=== PATIENT | female | born 2005 | race African-American/Black ===

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

== ENCOUNTER 2024-10-21 19:24 | Emergency (ER) | payer OTHER, SELFPAY ==
--- NOTE | ~2024-10-21 | US_ITS ---
US pelvic complete w TV Ordering provider: Nicolasa Nolan MD History: . r/o torsion . Comparison: None. Technique: Transabdominal and endovaginal ultrasound of the pelvis (Doppler ultrasound interrogation techniques used as needed for this exam.) FINDINGS: CERVIX: Normal. UTERUS: Measures 10.4x 3x 5 cm in length which is within normal limits and is anteverted. No myometr ial masses. ENDOMETRIUM: Normal in thickness measuring 1.9 mm. (Note: the premenopausal endometrium may measure u p to 16 mm when in the secretory phase.) No endometrial masses, cysts or fluid. CUL DE SAC: Moderate amount of free fluid in the pelvis. RIGHT OVARY: Normal in size measuring 3.1x 2.6x 2.3 cm. Normal echotexture. Doppler vascular flow pre sent. LEFT OVARY: Normal in size measuring 4.5x 3.6x 5.2 Normal echotexture. Doppler vascular flow present. Large Cystic septated hypervascular lesion is seen in the left adnexa. IMPRESSION: Cystic septated and hypervascular lesion in the left ovary with free fluid in the pelvis. Differentia l include hemorrhagic cyst versus ectopic . Clinical correlation advised. Torsion ovary is l ess likely but cannot be excluded. Otherwise, normal pelvic ultrasound. Reviewed, dictated and finalized at location A. IMPRESSION: Cystic septated and hypervascular lesion in the left ovary with free fluid in t he pelvis. Differential include hemorrhagic cyst versus ectopic . Clin ical correlation advised. Torsion ovary is less likely but cannot be excluded. Otherwise, normal pelvic ultrasound.
[2024-10-21 19:26] VITALS: BP 129/92; PULSE 119; RESP 20; TEMP 36.1; O2SAT 100
--- OUTSIDE RECORDS SUMMARY | 2024-10-21 19:28 | XMS_ITS ---
Author Organization [facility] Address [address] [facility] [address] [place] [address] Care Team Providers Care Armature Winder Repairer Name Role Phone Cydney Rudd Unavailable [phone] REASON FOR VISIT 4 week f/u; Late cancellation PT is sick Social History Sex Assigned At : Social History Observation Description Sex Assigned At Female Encounters Encounter Location Date Provider Diagnosis [facility] [address] [facility] [address] [place] [address] 09/02/2024 Cydney Rudd Plan Of Treatment No Information Progress Notes * BRENT HILLDOB:2005 (19 yo F)Acc No.[id number]:09/02/2024 Patient: Demetrio THOMPSON BRENT Provider: MANDIE QUINN :2005 A ge:19 Y S ex:Female Date:09/02/2024 Address:[facility] [address] [id number] Subjective: * Chief Complaints: * 1 . 4 week f/u; Late cancellation PT is sick. * Medical History: Objective: * Vitals: Assessment: Plan: * Treatment: * Billing Information: * Visit Code: * Procedure Codes: * Electronic signature of MANDIE Gibson on 10/21/2024 at 07:27 PM CDT Sign off status: Pending * Provider: MANDIE QUINN Date: 09/02/2024 Generated for Deborah harris/Jovana/eTransmitting on: 10/21/2024 07:27 PM CDT
--- OUTSIDE RECORDS SUMMARY | 2024-10-21 19:28 | XMS_ITS | Clinical Summary ---
Author Organization [facility] Address [address] [address] Phone Care Team Providers Care Auto Suspension And Steering Mechanic Name Role Phone Ashley Moraes MD Primary Care Provider [phone] Allergies No known active allergies Medications Tri-Sprintec, 28, 0.18/0.215/0.25 mg-35 mcg (28) tablet Take 1 Tablet by mouth daily. 3 Active fluticasone propionate (FLONASE) 50 mcg/spray [place], Suspension nasal inhalerIndicati ons:Viral URI Administer 2 Sprays in each nostril daily. 16 Gram 4 Active buPROPion HCL (WELLBUTRIN XL) 300 mg Extended Release 24 hour tablet Take 300 mg by mouth daily in the morning. 4 Active sertraline (Zoloft) 100 mg tablet Take 1.5 Tablets (150 mg) by mouth daily. 1 Tablet 4 Active topiramate (TOPAMAX) 25 mg tablet 1 tablet Orally twice daily for 30 days Active buPROPion HCL (WELLBUTRIN XL) 150 mg Extended Release 24 hour tablet 1 tablet in the morning Orally Once a day for 90 days Active Active Problems Problem Noted Date Diagnosed Date Moderate major depression 12/31/2023 Generalized anxiety disorder 05/26/2023 Panic attacks 05/26/2023 Encounters Date Type Department Care Team Description 10/18/2024 External Device Data STL ABSTRACTION Provider, Abstract 09/21/2024 External Device Data STL ABSTRACTION Provider, Abstract 09/21/2024 External Device Data STL ABSTRACTION Provider, Abstract 09/10/2024 External Device Data STL ABSTRACTION Provider, Abstract 09/09/2024 External Device Data STL ABSTRACTION Provider, Abstract 09/06/2024 External Device Data STL ABSTRACTION Provider, Abstract 08/23/2024 External Device Data STL ABSTRACTION Provider, Abstract 08/11/2024 Results Follow-Up [facility] at [place] [address] [place] [address] Celeste Eugene, NURIS HEMOGLOBIN A1C, MONONUCLEOSIS SCREEN, TSH, Additional followed-up results: 4 08/09/2024 10:00 AM VEHICLE INSURANCE AGENT Office Visit [facility] at [place] [address] [place] [address] Celeste Eugene, NURIS 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); Morbid obesity with body mass index of 40.0-49.9 (CMS/HCC); Screening for condition; Moderate major depression (CMS/HCC) 07/28/2024 External Device Data STL ABSTRACTION Provider, Abstract 07/27/2024 External Device Data STL ABSTRACTION Provider, Abstract 07/26/2024 External Device Data STL ABSTRACTION Provider, Abstract from Last 3 Months Family History Medical History Relation Name Comments Anxiety Sister 1 Irene Relation Name Status Comments Father Alive Mother Alive Sister 1 Irene Alive Sister 2 Madelaine Alive Sister 3 Wesley Alive Social History Tobacco Use Types Packs/Day Years Used Date Smoking Tobacco: Never Smokeless Tobacco: Never Tobacco Cessation:Counseling Given: Not Answered Comments No Sex and Gender Information Value Date Recorded Sex Assigned at Female 05/19/2023 4:22 PM VEHICLE INSURANCE AGENT Legal Sex Female 11:06 PM VEHICLE INSURANCE AGENT Gender Identity Other 05/19/2023 4:22 PM VEHICLE INSURANCE AGENT Sexual Orientation unknown 05/19/2023 4: 22 PM VEHICLE INSURANCE AGENT Last Filed Vital Signs Vital Sign Reading Time Taken Comments Blood Pressure 118/68 08/09/2024 10:00 AM VEHICLE INSURANCE AGENT Pulse 90 08/09/2024 10:00 AM VEHICLE INSURANCE AGENT Temperature 36.6 C (97.8 F) 08/09/2024 10:00 AM VEHICLE INSURANCE AGENT Respiratory Rate 18 08/09/2024 10:00 AM VEHICLE INSURANCE AGENT Oxygen Saturation 99% 08/09/2024 10:00 AM VEHICLE INSURANCE AGENT Inhaled Oxygen Concentration - - Weight 120.2 kg (265 lb) 08/09/2024 10:00 AM VEHICLE INSURANCE AGENT Height 160 cm (5' 3 ) 08/09/2024 10:00 AM VEHICLE INSURANCE AGENT Body Mass Index 46.94 08/09/2024 10:00 AM VEHICLE INSURANCE AGENT Plan of Treatment Upcoming Encounters Date Type Department Care Team (Late st Contact Info) Description 02/06/2025 10:30 AM CDT Office Visit [facility] at 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 [place] [address] [place] [address] Celeste Eugene, ANP [address] [place] [address] Health Maintenance Due Date Last Done Comments CHLAMYDIA SCREENING (ANNUAL) 11-24 YEARS 02/11/2015 HPV VACCINES (1 - 3-dose series) 02/11/2019 INFLUENZA VACCINE (#1) 2024 , 08/07/2016, 04/17/2015 Preventative Visit- Commercial 07/06/2024 DTAP/TDAP/TD VACCINES (7 - T d or Tdap) 04/17/2025 04/17/2015, 09/26/2008, 07/10/2005, Additional history exists HEPATITIS B VACCINES Completed 09/26/2008, 05/09/2005, 2004, Additional history exists Procedures Procedure Name Priority Date/Time Associated Diagnosis Comments COMPREHENSIVE METABOLIC PANEL Routine 08/09/2024 10:31 AM VEHICLE INSURANCE AGENT Screening for condition CBC WITH DIFFERENTIAL Routine 08/09/2024 10:31 AM VEHICLE INSURANCE AGENT Screening for condition Chronic hypertrophy of tonsils and adenoids LIPID PANEL Routine 08/09/2024 10:31 AM VEHICLE INSURANCE AGENT Screening for condition TSH Routine 08/09/2024 10:31 AM VEHICLE INSURANCE AGENT Screening for condition MONONUCLEOSIS SCREEN Routine 08/09/2024 10:31 AM VEHICLE INSURANCE AGENT Chronic hypertrophy of tonsils and adenoids HEMOGLOBIN A1C Routine 08/09/2024 10:31 AM VEHICLE INSURANCE AGENT Screening for condition THROAT CULTURE Routine 08/09/2024 10:31 AM VEHICLE INSURANCE AGENT Chronic hypertrophy of tonsils and adenoids from Last 3 Months Results * (ABNORMAL) CBC WITH DIFFERENTIAL (08/09/2024 10:31 AM VEHICLE INSURANCE AGENT) WBC 5.1 3.8 - 10.8 Thousand/u L [facility] RBC 4.31 3.80 - 5.10 Million/uL [facility] HEMOGLOBIN 11.7 11.7 - 15.5 g/dL [facility] HEMATOCRIT 37.2 35.0 - 45.0 % [facility] MCV 86.3 80.0 - 100.0 fL [facility] MCH 27.1 27.0 - 33.0 pg [facility] MCHC 31.5(L) 32.0 - 36.0 g/dL [facility] Comment: For adults, a slight decrease in the calculated MCHC value (in the range of 30 to 32 g/dL) is most likely not clinically significant; however, it should be interpreted with caution in correlation with other red cell parameters and the patient's clinical condition. RDW 12.0 11.0 - 15.0 % [facility] PLATELETS 384 140 - 400 Thousand/u L [facility] MPV 9.8 7.5 - 12.5 fL [facility] NEUTROPHIL ABSOLUTE 2,392 1,500 - 7,800 cells/uL [facility] LYMPHOCYTE ABSOLUTE 2,224 850 - 3,900 cells/uL [facility] MONOCYTE ABSOLUTE 311 200 - 950 cells/uL [facility] EOSINOPHIL ABSOLUTE 153 15 - 500 cells/uL [facility] BASOPHILS ABSOLUTE 20 0 - 200 cells/uL [facility] NEUTROPHIL 46.9 % [facility] LYMPHOCYTES 43.6 % [facility] MONOCYTE 6.1 % [facility] EOSINOPHILS 3.0 % [facility] BASOPHILS 0.4 % [facility] Comment: Test Performed at: [facility] [address] [place] [address] Falguni Lopez MD Blood 08/09/2024 10:3 1 AM VEHICLE INSURANCE AGENT 08/10/2024 4:38 AM VEHICLE INSURANCE AGENT Celeste Eugene ANP HEMATOLOGY ORDERABLES Final Result [facility] [phone] [facility] [address] [place] [address] * MONONUCLEOSIS SCREEN (08/09/2024 10:31 AM VEHICLE INSURANCE AGENT) MONONUCLEOSIS SCREEN NEGATIVE NEGATIVE [facility] Comment: Test Performed at: [facility] [address] [place] [address] [place] [address] OndinaMiladis Lopez MD Blood 08/09/2024 10:3 1 AM VEHICLE INSURANCE AGENT 08/10/2024 4:38 AM VEHICLE INSURANCE AGENT Celeste Eugene ANP HEMATOLOGY ORDERABLES Final Result Performing Organization Address City/[facility]/ZIP Co de Phone Number [facility] [phone] [facility] [address] * THROAT CULTURE (08/09/2024 10:31 AM VEHICLE INSURANCE AGENT) THROAT CULTURE SEE NOTE [facility] Comment: CULTURE, THROAT Micro Number: [id number] Test Status: Final Specimen Source: Throat Specimen Quality: Adequate Result: No oropharyngeal pathogens recovered. Test Performed at: [facility] [address] [place] [address] Falguni Lopez Upper Respiratory SPECIMEN FROM THROAT / Unknown 08/09/2024 10:31 AM VEHICLE INSURANCE AGENT 08/10/2024 3:53 AM VEHICLE INSURANCE AGENT Celeste Eugene ANP MICROBIOLOGY - GENERAL ORDER YULI Final Result [facility] [phone] [facility] [address] [place] [address] * TSH (08/09/2024 10:31 AM VEHICLE INSURANCE AGENT) Pathologist [facility] TSH 1.53 mIU/L [facility] Comment: Reference Range > or = 20 Years 0.40-4.50 Ranges First trimester 0.26-2.66 Second trimester 0.55-2.73 Third trimester 0.43-2.91 Test Performed at: [facility] [address] [address] Falguni Lopez MD Blood 08/09/2024 10:3 1 AM VEHICLE INSURANCE AGENT 08/10/2024 4:38 AM VEHICLE INSURANCE AGENT us Celeste Eugene BANNER CHEMISTRY ORDERABLES Final R esult [facility] [phone] [facility] [address] [facility] [address] * HEMOGLOBIN A1C (08/09/2024 10:31 AM VEHICLE INSURANCE AGENT) Pathologist [facility] HEMOGLOBIN A1C 4.8 <5.7 % of total Hgb [facility] Comment: For the purpose of screening for the presence of diabetes: <5.7% Consistent with the absence of diabetes 5.7-6.4% Consistent with increased risk for diabetes (prediabetes) > or =6.5% Consistent with diabetes This assay result is consistent with a decreased risk of diabetes. Currently, no consensus exists regarding use of hemoglobin A1c for diagnosis of diabetes in children. According to [place] [employer] Association (ADA) guidelines, hemoglobin A1c <7.0% represents optimal control in non- diabetic patients. Different metrics may apply to specific patient populations. Standards of Medical Care in Diabetes(ADA). ESTIMATED AVERAGE GLUCOSE (MG/DL) 91 mg/dL [facility] ESTIMATED AVERAGE GLUCOSE (MMOL/L) 5.0 mmol/L [facility] Comment: Test Performed at: [facility] [id number] [place] [address] Falguni Lopez MD Blood 08/09/2024 10:3 1 AM VEHICLE INSURANCE AGENT 08/10/2024 4:38 AM VEHICLE INSURANCE AGENT us Celeste Eugene ANP CHEMISTRY ORDERABLES Final R esult [facility] [phone] [facility] [place] [address] * (ABNORMAL) LIPID PANEL (08/09/2024 10:31 AM VEHICLE INSURANCE AGENT) CHOLESTEROL 198 <200 mg/dL [facility] HDL 63 > OR = 50 mg/dL [facility] TRIGLYCERIDE 54 <150 mg/dL [facility] LDL CALCULATED 120(H) mg/dL (calc) [facility] Comment: Reference range: <100 Desirable range <100 mg/dL for primary prevention; <70 mg/dL for patients with CHD or diabetic patients with > or = 2 CHD risk factors. LDL-C is now calculated using the Elvin-Choi calculation, which is a validated novel method providing better accuracy than the Friedewald equation in the estimation of LDL-C. Elvin SS et al. SHERRY. 2013;310(19): 8375-4772 (http://education.[employer]/faq/VXL960) CHOL/HDL RATIO 3.1 <5.0 (calc) [facility] NON-HDL CHOLESTEROL 135(H) <130 mg/dL (calc) [facility] Comment: For patients with diabetes plus 1 major ASCVD risk factor, treating to a non-HDL-C goal of <100 mg/dL (LDL-C of <70 mg/dL) is considered a therapeutic option. Test Performed at: [facility] [place] [address] Falguni Lopez MD Blood 08/09/2024 10:3 1 AM VEHICLE INSURANCE AGENT 08/10/2024 4:38 AM VEHICLE INSURANCE AGENT us Celeste Eugene BANNER CHEMISTRY ORDERABLES Final R esult [facility] [phone] [facility] [address], [place] [address] * (ABNORMAL) COMPREHENSIVE METABOLIC PANEL (08/09/2024 10:31 AM VEHICLE INSURANCE AGENT) GLUCOSE 97 65 - 99 mg/dL [facility] Comment: Fasting reference interval BUN 13 7 - 25 mg/dL [facility] CREATININE 0.89 0.50 - 0.96 mg/dL [facility] GFR 95 > OR = 60 mL/min/1. 73m2 [facility] BUN/CREAT RATIO SEE NOTE: 6 - 22 (calc) [facility] Comment: Not Reported: BUN and Creatinine are within reference range. SODIUM 137 135 - 146 mmol/L [facility] POTASSIUM 4.3 3.5 - 5.3 mmol/L [facility] CHLORIDE 103 98 - 110 mmol/L [facility] CO2 25 20 - 32 mmol/L [facility] CALCIUM 9.2 8.6 - 10.2 mg/dL [facility] TOTAL PROTEIN 7.7 6.1 - 8.1 g/dL [facility] ALBUMIN 4.1 3.6 - 5.1 g/dL [facility] GLOBULIN 3.6 1.9 - 3.7 g/dL (calc) [facility] ALBUMIN/GLOBULIN RATIO 1.1 1.0 - 2.5 (calc) [facility] BILIRUBIN TOTAL 0.3 0.2 - 1.2 mg/dL [facility] ALKALINE PHOSPHATASE 95 31 - 125 U/L [facility] AST 19 10 - 30 U/L [facility] ALT 33(H) 6 - 29 U/L [facility] Comment: Test Performed at: [facility] [address] [address] Falguni Lopez MD Blood 08/09/2024 10:3 1 AM VEHICLE INSURANCE AGENT 08/10/2024 4:38 AM VEHICLE INSURANCE AGENT us Celeste Eugene ANP CHEMISTRY ORDERABLES Final R esult [facility] [phone] [facility] [address] [place] [address] from Last 3 Months Insurance ALLEGIANCE OPEN ACCESS ALLEGIANCE OPEN ACCESS Care Teams Auto Suspension And Steering Mechanic Relationship Specialty Start Date End Date Ashley Moraes MD [address] [place] [address] [place] [address] PCP - General Internal Medicine 12/31/23
--- OUTSIDE RECORDS SUMMARY | 2024-10-21 19:28 | XMS_ITS | Referral Summary ---
Author Organization [address] Address [address] [place] [address] Care Team Providers Care Railway Signal Technician Name Role Phone Celeste Eugene NP Primary Care Provider [phone] Encounters Date Type Department Care Team Description 08/15/2024 9:45 AM PULVERIZER TENDER Office Visit [facility] at [address] [address] Margret Baird NP Adverse effect of drug, initial encounter (Primary Dx); Acute vomiting 08/12/2024 6:15 PM PULVERIZER TENDER Office Visit [facility] Care at [address] [address] Julia Naidu NP Pain, dental (Primary Dx) from Last 3 Months Allergies No known active allergies Medications norgestimate-ethiny l estradioL (ORTHO TRI-CYCLEN) 0.18/0.215/0.25 mg-35 mcg (28) per tablet Take 1 tablet by mouth daily Active sertraline (ZOLOFT) 100 mg tablet Take 1 tablet (100 mg total) by mouth daily Active buPROPion XL (WELLBUTRIN XL) 450 mg 24 hr tablet Take 1 tablet (450 mg total) by mouth daily Active topiramate (TOPAMAX) 50 mg tablet Take 1 tablet (50 mg total) by mouth 2 (two) times a day Active buPROPion XL (WELLBUTRIN XL) 150 mg 24 hr tablet Take 1 tablet (150 mg total) by mouth every morning 5 Active topiramate (TOPAMAX) 25 mg tablet Take 1 tablet (25 mg total) by mouth 2 (two) times a day 5 Active buPROPion XL (WELLBUTRIN XL) 300 mg 24 hr tablet Take 1 tablet (300 mg total) by mouth every morning 4 Active topiramate (TOPAMAX) 25 mg tablet Take 1 tablet (25 mg total) by mouth daily 5 Active ondansetron ODT (ZOFRAN-ODT) 4 mg disintegrating tabletIndications:A cute vomiting Take 1 tablet (4 mg total) by mouth every 6 (six) hours as needed for nausea or vomiting 20 tablet 5 Active Active Problems Problem Noted Date Diagnosed Date Moderate major depression 12/31/2023 Generalized anxiety disorder 05/26/2023 Panic attacks 05/26/2023 Social History Tobacco Use Types Packs/Day Years Used Date Smoking Tobacco: Never Assessed Comments Unknown Sex and Gender Information Value Date Recorded Sex Assigned at Not on file Legal Sex Female 5:48 PM PULVERIZER TENDER Gender Identity Not on file Sexual Orientation Not on file Last Filed Vital Signs Vital Sign Reading Time Taken Comments Blood Pressure 128/78 08/15/2024 9:40 AM PULVERIZER TENDER Pulse 125 08/15/2024 9:40 AM PULVERIZER TENDER Temperature 37.3 C (99.2 F) 08/15/2024 9:40 AM PULVERIZER TENDER Respiratory Rate 18 08/15/2024 9:40 AM PULVERIZER TENDER Oxygen Saturation 99% 08/15/2024 9:40 AM PULVERIZER TENDER Inhaled Oxygen Concentration - - Weight 120.2 kg (265 lb) 08/15/2024 9:40 AM PULVERIZER TENDER Height - - Body Mass Index - - Plan of Treatment Not on file Insurance JESSICA ALLEGIANCE Care Teams Railway Signal Technician Relationship Specialty Start Date End Date Celeste Eugene NP PCP - General Dna Sequencing Associate 08/15/24
--- OUTSIDE RECORDS SUMMARY | 2024-10-21 19:28 | XMS_ITS | Continuity of Care Document ---
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 Immunization Series Date Given Administered By Site Reaction Lot Number CVX Code Drug Macaroni Maker Status Comments Source influenza, injectable, quadrivalent- pf 2020 [id number] GlaxoSmithKli ne complet ed influenza , injectabl e, quadrival ent-pf 04/23/21 Given Ambulat ory Pharmac y influenza, injectable, quadrivalent- pf 2020 zzRig ht Arm [id number] 150 GlaxoSmithKli ne complet ed influenza , injectabl e, quadrival ent-pf 04/23/21 Given Ambulat ory Pharmac y meningococcal oligosacchari de (MCV4O) 2020 [id number] 136 GlaxoSmithKli ne complet ed meningoco ccal oligosacc haride (MCV4O) 04/23/21 Given Ambulat ory Pharmac y meningococcal oligosacchari de (MCV4O) 2020 zzLef t Arm [id number] 136 GlaxoSmithKli ne complet ed meningoco ccal oligosacc haride (MCV4O) 04/23/21 Given Ambulat ory Pharmac y COVID Vaccine Pfizer 2020 208 PFIZER complet ed COVID Vaccine Pfizer 03/13/21 Given Ambulat ory Pharmac y influenza, injectable, quadrivalent- pf 2016 [id number] 150 GlaxoSmithKli ne complet ed influenza , injectabl e, quadrival ent-pf 08/07/16 Given Ambulat ory Pharmac y influenza, injectable, quadrivalent- pf 2016 zzLef t Arm [id number] 150 GlaxoSmithKli ne complet ed influenza , injectabl e, quadrival ent-pf 17 Given Ambulat ory Pharmac y influenza, live, intranasal,qu adrivalent 2014 [id number] Med[employer] Inc comple t ed influenza , live, intranasa l,quadriv alent 04/17/15 Given Ambulat ory Pharmac y influenza, live, intranasal,qu adrivalent 2014 [id number] Med[employer] Inc comple t ed influenza , live, intranasa l,quadriv alent 04/17/15 Given Ambulat ory Pharmac y tetanus, diphtheria, acellular pertu is 2014 Callie Arm [id number] 115 sanofi pasteur complet ed tetanus, diphtheri a, acellular pertussis 04/17/15 Given Ambulat ory Pharmac y meningococcal A,C,Y,W-135 (MCV4P) 2014 Daniela t Arm [id number] 114 sanofi pasteur complet ed meningoco ccal A,C,Y,W-1 35 (MCV4P) 04/17/15 Given Ambulat ory Pharmac y tetanus, diphtheria, acellular pertu is 2014 [id number] 115 sanofi pasteur complet ed tetanus, diphtheri a, acellular pertussis 04/17/15 Given Ambulat ory Pharmac y meningococcal A,C,Y,W-135 (MCV4P) 2014 [id number] 114 sanofi pasteur complet ed meningoco ccal A,C,Y,W-1 35 (MCV4P) 04/17/15 Given Ambulat ory Pharmac y varicella virus vaccine 2008 TRANSCR IBED 21 complet ed varicella virus vaccine 09/26/08 Given Ambulat ory Pharmac y DTaP-hepatiti s B and poliovirus vaccine 2008 TRANSCR IBED 110 complet ed DTaP-hepa titis B and polioviru s vaccine 09/26/08 Given Ambulat ory Pharmac y measles/mumps /rubella virus vaccine 2008 TRANSCR IBED 03 complet ed measles/m umps/rube lla virus vaccine 09/26/08 Given Ambulat ory Pharmac y Hep A, pediatric, unspecified formul 2008 TRANSCR IBED 31 complet ed Hep A, pediatric , unspecifi ed formul 09/26/08 Given Ambulat ory Pharmac y DTaP-hepatiti s B and poliovirus vaccine 2008 TRANSCR IBED 110 complet ed DTaP-hepa titis B and polioviru s vaccine 09/26/08 Given Ambulat ory Pharmac y varicella virus vaccine 2008 TRANSCR IBED 21 complet ed varicella virus vaccine 09/26/08 Given Ambulat ory Pharmac y DTaP-hepatiti s B and poliovirus vaccine 2008 TRANSCR IBED 110 complet ed DTaP-hepa titis B and polioviru s vaccine 09/26/08 Given Ambulat ory Pharmac y Hep A, pediatric, unspecified formul 2008 TRANSCR IBED 31 complet ed Hep A, pediatric , unspecifi ed formul 09/26/08 Given Ambulat ory Pharmac y measles/mumps /rubella virus vaccine 2008 TRANSCR IBED 03 complet ed measles/m umps/rube lla virus vaccine 09/26/08 Given Ambulat ory Pharmac y DTaP-hepatiti s B and poliovirus vaccine 2008 TRANSCR IBED 110 complet ed DTaP-hepa titis B and polioviru s vaccine 09/26/08 Given Ambulat ory Pharmac y Hep A, pediatric, unspecified formul 2007 TRANSCR IBED 31 complet ed Hep A, pediatric , unspecifi ed formul 09/14/07 Given Ambulat ory Pharmac y Hep A, pediatric, unspecified formul 2007 TRANSCR IBED 31 complet ed Hep A, pediatric , unspecifi ed formul 09/14/07 Given Ambulat ory Pharmac y DTaP 2005 TRANSCR IBED 20 complet ed DTaP 07/10/05 Given Ambulat ory Pharmac y DTaP 2005 TRANSCR IBED 20 complet ed DTaP 07/10/05 Given Ambulat ory Pharmac y pneumococcal 7-valent vaccine 2005 TRANSCR IBED 100 complet ed pneumococ kevin 7-valent vaccine 07/10/05 Given Ambulat ory Pharmac y pneumococcal 7-valent vaccine 2005 TRANSCR IBED 100 complet ed pneumococ kevin 7-valent vaccine 07/10/05 Given Ambulat ory Pharmac y DTaP-hepatiti s B and poliovirus vaccine 2004 TRANSCR IBED 110 complet ed DTaP-hepa titis B and polioviru s vaccine 05/09/05 Given Ambulat ory Pharmac y measles/mumps /rubella virus vaccine 2004 TRANSCR IBED 03 complet ed measles/m umps/rube lla virus vaccine 05/09/05 Given Ambulat ory Pharmac y DTaP-hepatiti s B and poliovirus vaccine 2004 TRANSCR IBED 110 complet ed DTaP-hepa titis B and polioviru s vaccine 05/09/05 Given Ambulat ory Pharmac y DTaP-hepatiti s B and poliovirus vaccine 2004 TRANSCR IBED 110 complet ed DTaP-hepa titis B and polioviru s vaccine 05/09/05 Given Ambulat ory Pharmac y DTaP-hepatiti s B and poliovirus vaccine 2004 TRANSCR IBED 110 complet ed DTaP-hepa titis B and polioviru s vaccine 05/09/05 Given Ambulat ory Pharmac y varicella virus vaccine 2004 TRANSCR IBED 21 complet ed varicella virus vaccine 05/09/05 Given Ambulat ory Pharmac y Hib, unspecified formulation 2004 TRANSCR IBED 17 complet ed Hib, unspecifi ed formulati on 05/09/05 Given Ambulat ory Pharmac y varicella virus vaccine 2004 TRANSCR IBED 21 complet ed varicella virus vaccine 05/09/05 Given Ambulat ory Pharmac y measles/mumps /rubella virus vaccine 2004 TRANSCR IBED 03 complet ed measles/m umps/rube lla virus vaccine 05/09/05 Given Ambulat ory Pharmac y Hib, unspecified formulation 2004 TRANSCR IBED 17 complet ed Hib, unspecifi ed formulati on 05/09/05 Given Ambulat ory Pharmac y DTaP-hepatiti s B and poliovirus vaccine 2004 TRANSCR IBED 110 complet ed DTaP-hepa titis B and polioviru s vaccine 04 Given Ambulat ory Pharmac y DTaP-hepatiti s B and poliovirus vaccine 2004 TRANSCR IBED 110 complet ed DTaP-hepa titis B and polioviru s vaccine 04 Given Ambulat ory Pharmac y pneumococcal 7-valent vaccine 2004 TRANSCR IBED 100 complet ed pneumococ kevin 7-valent vaccine 04 Given Ambulat ory Pharmac y pneumococcal 7-valent vaccine 2004 TRANSCR IBED 100 complet ed pneumococ kevin 7-valent vaccine 04 Given Ambulat ory Pharmac y Hib, unspecified formulation 2004 TRANSCR IBED 17 complet ed Hib, unspecifi ed formulati on 04 Given Ambulat ory Pharmac y DTaP-hepatiti s B and poliovirus vaccine 2003 TRANSCR IBED 110 complet ed DTaP-hepa titis B and polioviru s vaccine 04 Given Ambulat ory Pharmac y DTaP-hepatiti s B and poliovirus vaccine 2003 TRANSCR IBED 110 complet ed DTaP-hepa titis B and polioviru s vaccine 04 Given Ambulat ory Pharmac y DTaP-hepatiti s B and poliovirus vaccine 2003 TRANSCR IBED 110 complet ed DTaP-hepa titis B and polioviru s vaccine 04 Given Ambulat ory Pharmac y Hib, unspecified formulation 2003 TRANSCR IBED 17 complet ed Hib, unspecifi ed formulati on 04 Given Ambulat ory Pharmac y DTaP-hepatiti s B and poliovirus vaccine 2003 TRANSCR IBED 110 complet ed DTaP-hepa titis B and polioviru s vaccine 04 Given Ambulat ory Pharmac y pneumococcal 7-valent vaccine 2003 TRANSCR IBED 100 complet ed pneumococ kevin 7-valent vaccine 04 Given Ambulat ory Pharmac y pneumococcal 7-valent vaccine 2003 TRANSCR IBED 100 complet ed pneumococ kevin 7-valent vaccine 04 Given Ambulat ory Pharmac y Hib, unspecified formulation 2003 TRANSCR IBED 17 complet ed Hib, unspecifi ed formulati on 04 Given Ambulat ory Pharmac y DTaP-hepatiti s B and poliovirus vaccine 2003 TRANSCR IBED 110 complet ed DTaP-hepa titis B and polioviru s vaccine 04 Given Ambulat ory Pharmac y Hib, unspecified formulation 2003 TRANSCR IBED 17 complet ed Hib, unspecifi ed formulati on 04 Given Ambulat ory Pharmac y DTaP-hepatiti s B and poliovirus vaccine 2003 TRANSCR IBED 110 complet ed DTaP-hepa titis B and polioviru s vaccine 04 Given Ambulat ory Pharmac y pneumococcal 7-valent vaccine 2003 TRANSCR IBED 100 complet ed pneumococ kevin 7-valent vaccine 04 Given Ambulat ory Pharmac y pneumococcal 7-valent vaccine 2003 TRANSCR IBED 100 complet ed pneumococ kevin 7-valent vaccine 04 Given Ambulat ory Pharmac y Hib, unspecified formulation 2003 TRANSCR IBED 17 complet ed Hib, unspecifi ed formulati on 04 Given Ambulat ory Pharmac y Procedures Combined list of: 1) Procedures from Department of Veterans Affairs facilities going back up to thelast 18 months, not all [place] non-surgical procedures are included; 2) All procedures from the Department of Defense facilities. Procedure Procedure Type Code Date Perfomer Comments Sourc e No data available for this section Ambulatory P harmacy Assessment and Plan Combined list of future care activities from Department of Defense and Veterans [facility] facilities (e.g., assessment and plan notes, appointments, orders, and referrals). Additional future care activities may be listed in the Plan of Care section. Result Assessment and Plan Date Source Assessment and Plan No data available for this section 10/22/2024 Ambulatory Pharmacy Functional Status Combined list of recent functional and cognitive assessments recorded at Department of Defense and Veterans Affairs ([place] Functional [place] Measurement (FIM) Scale: 1 = Total Assistance (Subject = 0% +), 2 = Maximal Assistance (Subject = 25% +), 3 = Moderate Assistance (Subject = 50% +), 4 = Minimal Assistance (Subject = 75% +), 5 = Supervision, 6 = Modified [place] (Device), 7 = Complete [place] (Timely, Safely). Assessment Date/Time Source Assessment Type Assessment Skill Assessment Score Assessment Details No data available for this section
--- OUTSIDE RECORDS SUMMARY | 2024-10-21 19:28 | XMS_ITS | Clinical Summary ---
Author Organization [facility] Address [address] [place] [id number] Care Team Providers Care System Architect Name Role Phone JabierCeleste Betina MARK Primary Care Provider [phone] Allergies No known active allergies Medications norgestimate-ethiny [...] Department Care Team Description 08/15/2024 9:45 AM DIVISION TOLL WIRE CHIEF Office Visit [facility] at [address] [phone] Margret Baird NP Adverse effect of drug, initial encounter (Primary Dx); Acute vomiting 08/12/2024 6:15 PM DIV[employer] CHIEF Office Visit [facility] at [address] [phone] Julia Naidu NP Pain, dental (Primary Dx) from Last 3 Months Social History Tobacco Use Types Packs/Day Years Used Date Smoking Tobacco: Never Assessed Comments Unknown Sex and Gender Information Value Date Recorded Sex Assigned at Not on file Legal Sex Female 5:48 PM DIVISION [employer] CHIEF Gender Identity Not on file Sexual Orientation Not on file Obstetrics History Last Filed Vital Signs Vital Sign Reading Time Taken Comments Blood Pressure 128/78 08/15/2024 9:40 AM DIVISION [employer] CHIEF Pulse 125 08/15/2024 9:40 AM DIVISION [employer] CHIEF Temperature 37.3 C (99.2 F) 08/15/2024 9:40 AM DIVISION [employer] W[employer] CHIEF Respiratory Rate 18 08/15/2024 9:40 AM DIVISION TO[employer] W[employer] CHIEF Oxygen Saturation 99% 08/15/2024 9:40 AM DIVISION TO[employer] W[employer] CHIEF Inhaled Oxygen Concentration - - Weight 120.2 kg (265 lb) 08/15/2024 9:40 AM DIVISION [employer] W[employer] CHIEF Height - - Body Mass Index - - Plan of Treatment Health Maintenance Due Date Last Done Comments Depression Screening 2004 Hepatitis C Screening 2004 HPV Vaccines (1 - 3-dose series) 02/11/2019 Meningococcal B Vaccine (1 o f 2 - Standard) 2020 Regular Well Visit/Exam 18-64 02/11/2022 Covid-19 Vaccine (3 - 2023-2 5 season) 2024 03/13/2021, 02/20/2021 Influenza Vaccine (#1) 2024 , 08/07/2016, 04/17/2015 DTaP/Tdap/Td Vaccine (7 - Td or Tdap) 04/17/2025 04/17/2015, 09/26/2008, 07/10/2005, Additional history exists Pneumococcal vaccine <65 Completed 006, 2004, 2004, Additional history exists Hepatitis B Screening Completed 09/26/2008 , 05/09/2005, 2004, Additional history exists Varicella Vaccines Completed 09/26/2008, 05/09/2005 Meningococcal Vaccine Completed 04/23/2021, 015 [facility] Care Teams System Architect Relationship Specialty Start Date End Date Celeste Eugene NP PCP - General Sales Representative [employer] 08/15/24
--- OUTSIDE RECORDS SUMMARY | 2024-10-21 19:28 | XMS_ITS | Patient Health Record ---
Author Organization [facility] [employer] Address [address] [place] [address] Care Team Providers Care Asp Developer Name Role Phone Cydney Rudd Unavailable [phone] Marco Duran Unavailable [phone] Migration, Provider Unavailable Unavailable Allergies No Known Allergies Reason For Referral No Information Medications Medication SIG (Take, Route, Frequency, Duration) Notes Start Date End Date Status Tri-Sprintec 0.18/0.215/0.25 MG-35 MCG Oral 11/09/2023 Un known Topiramate 25 MG TAKE 1 TABLET BY TWICE DAILY for 90 Active Sertraline HCl 100 MG 2 tablet every mor shahrzad Oral Once a day for 90 days Active buPROPion HCl ER (XL) 150 MG 1 tablet in the morning Orally Once a day for 90 days Active buPROPion HCl ER (XL) 300 MG 1 tablet in the morning Oral Once a day for 90 days Active Social History Tobacco Use: Social History Observation Description Date Details (start date - stop date) Never Smoker NA - NA Sex Assigned At : Social History Observation Description Sex Assigned At Female Tobacco Control (Standard) Question Answer Notes Tobacco use: Nonsmoker Problems Problem Type SNOMED Code ICD Code Onset Dates Problem Status W/U Status Risk Notes Problem Moderate recurrent major depression (95955229) Major depressive disorder, recurrent, moderate (F33.1) Active confirmed Problem Severe recurrent major depression without psychotic features (44325878) Major depressive disorder, recurrent severe without psychotic features (F33.2) Active confirmed Problem Generalized anxiety disorder (31347771) Generalized anxiety disorder (F41.1) Active confirmed Problem Posttraumatic stress disorder (78386337) Post-traumatic stress disorder, chronic (F43.12) Active confirmed Problem Borderline personality disorder (48990123) Borderline personality disorder (F60.3) Active confirmed Vital Signs Height-cm 160.02 cm 11/09/2023 Height 63.00 in 11/09/2023 Encounters Encounter Location Date Provider Diagnosis [place] [id number] [facility] [address] [address] 06/14/2024 Marco Duran [address] [address] 11/09/2023 Cydney Tobin Borderline personality disorder F60.3 ; Major depressive disorder, recurrent severe without psychotic features F33.2 ; Generalized anxiety disorder F41.1 and Post-traumatic stress disorder, chronic F43.[address] [address] 12/14/2023 Marco Duran Generalized anxiety disorder F41.1 ; PTSD (post-traumatic stress disorder) F43.10 and Major depressive disorder, recurrent, moderate F33.[address] [address] 12/14/2023 Cydney Rudd Major depressive disorder, recurrent severe without psychotic features F33.2 ; Generalized anxiety disorder F41.1 ; Post-traumatic stress disorder, chronic F43.12 and Borderline personality disorder F60.[address] [address] 12/28/2023 Marco Duran Generalized anxiety disorder F41.1 ; Recurrent major depressive episodes, moderate F33.1 and PTSD (post-traumatic stress disorder) F43.[address] [address] 01/12/2024 Marco Duran Generalized anxiety disorder F41.1 and Recurrent major depressive episodes, moderate F33.[address] [address] 01/25/2024 Cydney Rudd Major depressive disorder, recurrent severe without psychotic features F33.2 ; Generalized anxiety disorder F41.1 ; Post-traumatic stress disorder, chronic F43.12 and Borderline personality disorder F60.3 [place] [address] [facility] [address] [address] 02/01/2024 Marco Duran Generalized anxiety disorder F41.1 and Recurrent major depressive episodes, moderate F33.1 [facility], [facility] [address] [place] [address] 02/15/2024 Marco Duran Generalized anxiety disorder F41.1 and Recurrent major depressive episodes, moderate F33.1 [facility], [facility] [address] [place] [address] 02/29/2024 Marco Duran Generalized anxiety disorder F41.1 and Recurrent major depressive episodes, moderate F33.1 [facility], [facility] [address] [place] [address] 03/21/2024 Cydney Tobin Major depressive disorder, recurrent severe without psychotic features F33.2 ; Generalized anxiety disorder F41.1 ; Post-traumatic stress disorder, chronic F43.12 and Borderline personality disorder F60.3 [facility], [facility] [address] [facility] [address] [place] [address] 04/14/2024 Cydney Tobin Major depressive disorder, recurrent severe without psychotic features F33.2 ; Generalized anxiety disorder F41.1 ; Post-traumatic stress disorder, chronic F43.12 and Borderline personality disorder F60.3 [facility], [facility] [address] [place] [address] 05/13/2024 Cydney Tobin Major depressive disorder, recurrent severe without psychotic features F33.2 ; Generalized anxiety disorder F41.1 ; Post-traumatic stress disorder, chronic F43.12 ; Borderline personality disorder F60.3 and Moderate binge-eating disorder F50.811 [facility], [facility] [address] [place] [address] 05/30/2024 Marco Duran Generalized anxiety disorder F41.1 and Depression, major, recurrent, moderate F33.1 [facility], [facility] [address] [place] [address] 06/17/2024 Cydney Tobin Major depressive disorder, recurrent severe without psychotic features F33.2 ; Generalized anxiety disorder F41.1 ; Post-traumatic stress disorder, chronic F43.12 ; Borderline personality disorder F60.3 and Moderate binge-eating disorder F50.811 [facility], [facility] [address] [place] [address] 07/21/2024 [facility] [address] [place] [address] 08/05/2024 Cydney Tobin Major depressive disorder, recurrent severe without psychotic features F33.2 ; Generalized anxiety disorder F41.1 ; Post-traumatic stress disorder, chronic F43.12 ; Borderline personality disorder F60.3 and Moderate binge-eating disorder F50.811 [facility] [address] [place] [address] 11/21/2023 Provider Migration [facility] [place] [id number] [facility] [address] [facility] [address] [place] [address] 11/22/2023 Provider Migration [facility], [facility] [address] [facility] [address] [facility] [address] [place] [address] 07/22/2024 Cydney Rudd [facility] [place] [id number] [facility] [address] [facility] [address] [place] [address] 03/14/2024 Cydney Tobin Generalized anxiety disorder F41.1 and Major depressive disorder, recurrent severe without psychotic features F33.2 Assessments Encounter Date Diagnosis (ICD Code) Assessment Notes Treatment Notes Treatment Clinical Notes Section Notes 12/14/2023 Major depressive disorder, recurrent severe without psychotic features (ICD-10 - F33.2) Depression stabilized since increasing Wellbutrin. Continues to struggle with anxiety, responded well to sertraline when she first started, last dose increase aout 6 months ago. 12/14/2023 Generalized anxiety disorder (ICD-10 - F41.1) Increase sertraline to 150mg daily for anxiety. Patient educated on all medications including potential benefits, side effects, risks. Educated on proper dosing schedule and importance of compliance. Depression stabilized since increasing Wellbutrin. Continues to struggle with anxiety, responded well to sertraline when she first started, last dose increase aout 6 months ago. 08/05/2024 Major depressive disorder, recurrent severe without psychotic features (ICD-10 - F33.2) Common side effects of Wellbutrin include insomnia, increased anxiety, nausea, dizziness, decreased appetite, restlessness, irritability and anger, increased sweating or hot flashes, tremors, joint pain. Wellbutrin is not recommended in individuals with a history of seizures. If side effects persist, please contact the office. 05/13/2024 Major depressive disorder, recurrent severe without psychotic features (ICD-10 - F33.2) Common side effects of Wellbutrin include insomnia, increased anxiety, nausea, dizziness, decreased appetite, restlessness, irritability and anger, increased sweating or hot flashes, tremors, joint pain. Wellbutrin is not recommended in individuals with a history of seizures. If side effects persist, please contact the office. 05/30/2024 Generalized anxiety disorder (ICD-10 - F41.1) 05/30/2024 Depression, major, recurrent, moderate (ICD-10 - F33.1) 06/17/2024 Major depressive disorder, recurrent severe without psychotic features (ICD-10 - F33.2) Common side effects of Wellbutrin include insomnia, increased anxiety, nausea, dizziness, decreased appetite, restlessness, irritability and anger, increased sweating or hot flashes, tremors, joint pain. Wellbutrin is not recommended in individuals with a history of seizures. If side effects persist, please contact the office. 12/28/2023 Recurrent major depressive episodes, moderate (ICD-10 - F33.1) 01/12/2024 Generalized anxiety disorder (ICD-10 - F41.1) 01/12/2024 Recurrent major depressive episodes, moderate (ICD-10 - F33.1) 01/25/2024 Major depressive disorder, recurrent severe without psychotic features (ICD-10 - F33.2) 02/01/2024 Generalized anxiety disorder (ICD-10 - F41.1) 02/01/2024 Recurrent major depressive episodes, moderate (ICD-10 - F33.1) 02/15/2024 Generalized anxiety disorder (ICD-10 - F41.1) 02/15/2024 Recurrent major depressive episodes, moderate (ICD-10 - F33.1) 02/29/2024 Generalized anxiety disorder (ICD-10 - F41.1) 02/29/2024 Recurrent major depressive episodes, moderate (ICD-10 - F33.1) 03/14/2024 Generalized anxiety disorder (ICD-10 - F41.1) 03/21/2024 Major depressive disorder, recurrent severe without psychotic features (ICD-10 - F33.2) Common side effects of Wellbutrin include insomnia, increased anxiety, nausea, dizziness, decreased appetite, restlessness, irritability and anger, increased sweating or hot flashes, tremors, joint pain. Wellbutrin is not recommended in individuals with a history of seizures. If side effects persist, please contact the office. 04/14/2024 Major depressive disorder, recurrent severe without psychotic features (ICD-10 - F33.2) Common side effects of Wellbutrin include insomnia, increased anxiety, nausea, dizziness, decreased appetite, restlessness, irritability and anger, increased sweating or hot flashes, tremors, joint pain. Wellbutrin is not recommended in individuals with a history of seizures. If side effects persist, please contact the office. 12/14/2023 Generalized anxiety disorder (ICD-10 - F41.1) 12/14/2023 PTSD (post-traumatic stress disorder) (ICD-10 - F43.10) 11/09/2023 Major depressive disorder, recurrent severe without psychotic features (ICD-10 - F33.2) 11/09/2023 Generalized anxiety disorder (ICD-10 - F41.1) 11/09/2023 Post-traumatic stress disorder, chronic (ICD-10 - F43.12) 11/09/2023 Borderline personality disorder (ICD-10 - F60.3) 12/28/2023 Generalized anxiety disorder (ICD-10 - F41.1) 12/28/2023 PTSD (post-traumatic stress disorder) (ICD-10 - F43.10) 12/14/2023 Major depressive disorder, recurrent, moderate (ICD-10 - F33.1) 04/14/2024 Generalized anxiety disorder (ICD-10 - F41.1) Common side effects to SSRI medications include headaches, dry mouth/eye, GI upset (including indigestion, nausea, diarrhea), sleeping problems (insomnia or drowsiness), decreased libido, blurred vision, dizziness. Generally, side effects will subside or lessen with time and are common during drug initiation and dose changes. If they persist please contact the office. 03/21/2024 Generalized anxiety disorder (ICD-10 - F41.1) Common side effects to SSRI medications include headaches, dry mouth/eye, GI upset (including indigestion, nausea, diarrhea), sleeping problems (insomnia or drowsiness), decreased libido, blurred vision, dizziness. Generally, side effects will subside or lessen with time and are common during drug initiation and dose changes. If they persist please contact the office. 03/14/2024 Major depressive disorder, recurrent severe without psychotic features (ICD-10 - F33.2) 01/25/2024 Generalized anxiety disorder (ICD-10 - F41.1) Reports she feels stable overall on current medication dose, continue. Refills sent in today. Patient educated on all medications including potential benefits, side effects, risks. Educated on proper dosing schedule and importance of compliance. Continue counseling with Marco. 06/17/2024 Generalized anxiety disorder (ICD-10 - F41.1) Common side effects to SSRI medications include headaches, dry mouth/eye, GI upset (including indigestion, nausea, diarrhea), sleeping problems (insomnia or drowsiness), decreased libido, blurred vision, dizziness. Generally, side effects will subside or lessen with time and are common during drug initiation and dose changes. If they persist please contact the office. 05/13/2024 Generalized anxiety disorder (ICD-10 - F41.1) Common side effects to SSRI medications include headaches, dry mouth/eye, GI upset (including indigestion, nausea, diarrhea), sleeping problems (insomnia or drowsiness), decreased libido, blurred vision, dizziness. Generally, side effects will subside or lessen with time and are common during drug initiation and dose changes. If they persist please contact the office. 08/05/2024 Generalized anxiety disorder (ICD-10 - F41.1) Common side effects to SSRI medications include headaches, dry mouth/eye, GI upset (including indigestion, nausea, diarrhea), sleeping problems (insomnia or drowsiness), decreased libido, blurred vision, dizziness. Generally, side effects will subside or lessen with time and are common during drug initiation and dose changes. If they persist please contact the office. 12/14/2023 Post-traumatic stress disorder, chronic (ICD-10 - F43.12) Depression stabilized since increasing Wellbutrin. Continues to struggle with anxiety, responded well to sertraline when she first started, last dose increase aout 6 months ago. 12/14/2023 Borderline personality disorder (ICD-10 - F60.3) Depression stabilized since increasing Wellbutrin. Continues to struggle with anxiety, responded well to sertraline when she first started, last dose increase aout 6 months ago. 08/05/2024 Post-traumatic stress disorder, chronic (ICD-10 - F43.12) 05/13/2024 Post-traumatic stress disorder, chronic (ICD-10 - F43.12) 06/17/2024 Post-traumatic stress disorder, chronic (ICD-10 - F43.12) 01/25/2024 Post-traumatic stress disorder, chronic (ICD-10 - F43.12) 03/21/2024 Post-traumatic stress disorder, chronic (ICD-10 - F43.12) 04/14/2024 Post-traumatic stress disorder, chronic (ICD-10 - F43.12) 04/14/2024 Borderline personality disorder (ICD-10 - F60.3) 03/21/2024 Borderline personality disorder (ICD-10 - F60.3) 01/25/2024 Borderline personality disorder (ICD-10 - F60.3) 06/17/2024 Borderline personality disorder (ICD-10 - F60.3) 05/13/2024 Borderline personality disorder (ICD-10 - F60.3) 05/13/2024 Moderate binge-eating disorder (ICD-10 - F50.811) 08/05/2024 Borderline personality disorder (ICD-10 - F60.3) 08/05/2024 Moderate binge-eating disorder (ICD-10 - F50.811) 06/17/2024 Moderate binge-eating disorder (ICD-10 - F50.811) 12/28/2023 Other Client participated in individual psychptherapy(CB T) related to hx of anxiety depression and PTSD. Based on today's session continued psychotherapy is recommended with no changes to treatment plan. Client seen today for the second time following completion of initial assessment. Client verbal and engaged throughout session with frequent laughter. Presented to session well groomed and fully oriented with no risk of harm to self or others. Reported upon presentation that she has been all right since last seen on 12.14.2023. Primary focus of session on rapport builing and issue identification. Client stated that she often feels like an imposter and that she is floundering thru life and often asks what the hell just happened. Moreover is not happy nor does she know what it is to be happy. Client receptive to session and was encouraged to start examing some of he false beliefs and impact they have had on her life. Next session in two weeks. 01/12/2024 Other Client participated in individual psychotherapy(CB T) related to history of anxiety and depression. Based on today's session continued psychotherapy is recommended with no changes to treatment plan. Client presented to session well groomed, fully oriented and with inappropriate laughter through out session. She was verbal and engaged through out session. Reported upon presentation that she has been okay and content with where she at this week. Noted that she was easily set off last week and felt more angry. Denied any anger outbursts. Session centered on exploring and examining her beliefs and world view responsible for anxiety and depression. Admitted a long hx of expecting the worse but hoping for the best as well struggling accepting people for who they choose to be. Client receptive to session feedback. She was provided a handout entitled 10 habits to quit to be happy. Next session in two weeks. 02/01/2024 Other Client participated in individual psychotherapy(CB T) related to hx of anxiety and depression. Based on today's session continued psychotherapy is recommended with no changes to treatment plan. Client presented to session well groomed and fully oriented with no risk of harm to self or others. Client verbal and engaged through out session with less inappropriate laughter. Reported upon presentation that she is not great and has had a rough couple of weeks. Noted that she has entertained suicidal thoughts but no plan or intent. Moreover has been having some night yepez of past trauma. Stated that this time of the year(her up approching birthday) is bad for her. Session according focued on challenging beliefs which have supported her anxiety and depression. Session also addressed relationships in her life and how they have fueled anxiety and depression. Relationship with parents explored with client. Client receptive to session feedback. Client encouraged to read The Dance of Anger. Next session in two weeks. 02/15/2024 Other Client participated in individual psychotherapy related to her hx of anxiety and depression. Based on today's session continued psychotherapy is recommended with no changes to treatment plan. Client presented to session well groomed and fully oriented with no risk of harm to self or others. Client verbal and engaged with appropriate mood and affect through out session. Reported upon presentation that she has been okay since last seen on 02.01.2024. Added that she celebrated her 19th birthday this past Thursday with boyfriend who planned a surprise constitution party but no one showed. Noted that she was a little disappointed but okay over all. Session foused on exploring with client how past relationships have contributed to her anxiety and depression. Client receptive to session feedback. Next session in two weeks. 02/29/2024 Other Client participated in individual psychotherapy related to her hx of anxiety and depression. Based on today's session continued psychotherapy is recommended with no changes to treatment plan. Client presented to session well groomed and fully oriented with no risk of harm to self or others. Client verbal and engaged through out session with appropriate mood and affect. Reported upon presentation that she has been tired and finally got brakes fixed on her car. Did not know that she had been driving car with bad brakes the entire time she has had the car. Focus of session on her relationship with parents and other family members and impact on her depression and anxiety. Client recetive to session feedback. Next session in two weelks. 03/21/2024 Other Feels stable, continue current medications. Refills sent in today. Patient educated on all medications including potential benefits, side effects, risks. Educated on proper dosing schedule and importance of compliance. Continue counseling with Marco. - KEEP YOUR BEDROOM DARK - GET LOTS OF NATURAL LIGHT IN THE MORNING. - DON'T WORK ON YOUR COMPUTER OR PHONE LATE AT NIGHT. - AVOID NAPS DURING THE DAY. - NO CAFFEINE 3 HOURS OR MORE AFTER WAKE UP TIME. - ONLY USE YOUR BED FOR SLEEPING - GET A RELAXATION ROUTINE BEFORE BED. - IF YOU CAN'T GET TO SLEEP AFTER 15 TO 30 MINUTES GET OUT OF BED AND DO SOMETHING RELAXING. - DON'T DRINK ALCOHOL IN THE EVENING or limit alcohol to 1 drink. 04/14/2024 Other Increase Wellbutrin to 450mg daily for mood, binging urges. Continue sertraline 150mg daily. Patient educated on all medications including potential benefits, side effects, risks. Educated on proper dosing schedule and importance of compliance. Encouraged to schedule counseling with Marco. Discussed TMS and esketamine options. 05/13/2024 Other Start Topamax 25mg daily for binging. Patient educated on all medications including potential benefits, side effects, risks. Educated on proper dosing schedule and importance of compliance. Encouraged to get back into counseling with Marco Supportive therapy provided. 05/30/2024 Other Client participated in individual psychotherapy(CB T/Supportive) related to her hx of anxiety and depression. Based on today's session continued psychotherapy is recommended with no changes to treatment plan. Client presented to tg well groomed and fully oriented with no risk of harm to self or others. Client verbal and engaged through out session. Reported that she has been terrible since last seen on 02.29.2024. Added that she has struggled coming back for further sessions, things have been overwhelming . Spoke at length about recent of a friend/co-worker from complicatons of weight loss surgery. Noted however that she could bring self to attend friend's and does not have any regrets about it. Client provided supportive therapy. Noted that she and parents along with sister are leaving for [place] tomorrow. Looking forward to getting away. Next session in three weeks. 06/17/2024 Other Increase sertraline to 200mg daily Patient educated on all medications including potential benefits, side effects, risks. Educated on proper dosing schedule and importance of compliance. Cont counseling with Marco -Assessment and treatment plan reviewed with patient. -Compliance with treatment plan importance discussed. -Discussed the risks/benefits of this medication -Discussed medication side effects. -Contact office if symptoms worsen. -Discussed that it can take up to 6-8 weeks to see full therapeutic effects of psychotropic medications. -Crisis prevention hotline 988. 08/05/2024 Other Increase Topamax to 50mg BID for binge eating Patient educated on all medications including potential benefits, side effects, risks. Educated on proper dosing schedule and importance of compliance. Cont counseling with Marco -Assessment and treatment plan reviewed with patient. -Compliance with treatment plan importance discussed. -Discussed the risks/benefits of this medication -Discussed medication side effects. -Contact office if symptoms worsen. -Discussed that it can take up to 6-8 weeks to see full therapeutic effects of psychotropic medications. -Crisis prevention hotline 988. Plan Of Treatment No Information Insurance Providers Payer Name Payer Address Payer Phone Subscriber Number Group Number Insured Name Patient Relationship to Insured Coverage Start Date Coverage End Date [employer] Plan Management Ppo [address] [place] [id number] [place] Self - patient is the insured
[2024-10-21 21:13] LABS: Basophils Percent Auto 0.3 % (0.2-1.2); Eosinophils Absolute Auto 0.1 K/mm3 (0-0.3); Eosinophils Percent Auto 2.4 % (0-4.4); Hematocrit 35.1 % (37.0-47.0); Hemoglobin 10.9 g/dL (12.0-15.0); Immature Granulocyte Absolute 0.01 K/mm3 (0.00-0.031); Immature Granulocyte Percent A 0.2 % (0-0.5); Lymphocytes Percent Auto 42.7 % (18.3-44.2); Mean Corpuscular HGB Conc 31.1 g/dl (32-36); Mean Corpuscular Hemoglobin 27.1 pg (26-34); Mean Corpuscular Volume 87.3 fl (80-100); Mean Platelet Volume 9.5 fl (7.4-10.4); Monocytes Absolute Auto 0.4 K/mm3 (0.1-0.6); Neutrophils Absolute Auto 2.8 K/mm3 (1.3-6.7); Neutrophils Percent Auto 47.4 % (45.5-73.1); Platelet Count Result 362 k/mm3 (150-375); Red Blood Count 4.02 M/mm3 (4.2-5.4); White Blood Count 5.9 K/mm3 (4.5-10.0)
[2024-10-21 21:18] LABS: Add Urine Microscopic? YES; Appearance Urine Cloudy (Clear); Bacteria Urine 1+ /hpf; Bilirubin Urine Negative (Negative); Blood Urine Negative (Negative); Color Urine Yellow (Yellow); Glucose Urine UA Negative (Negative); Ketones Urine Negative (Negative); Leukocyte Esterase Ur 1+ LEU/UL (Negative); Nitrate Urine Negative (Negative); Non Pathogenic Casts 0-2; Protein Urine Negative (Negative); RBC Urine 0-2 /hpf (0-2); Specific Grav Ur 1.018 (1.001-1.035); Squamous Epithelial Cell Urine Moderate /hpf (Few); Urobilinogen Urine 0.2 mg/dL (<2.0)
[2024-10-21 21:24] LABS: Alanine Aminotransferase 43 U/L (6-35); Albumin Level 4.5 g/dL (3.5-5.1); Alkaline Phosphatase 103 U/L (38-126); Anion Gap 12 mmol/L (4-12); Aspartate Amino Transferase 31 U/L (14-36); Bilirubin,Total 0.3 mg/dL (0.2-1.3); Blood Urea Nitrogen 13 mg/dL (7-17); Carbon Dioxide 19 mmol/L (22-30); Chloride 108 mmol/L (98-107); Estimated CRCL calculation 83 ml/min; Estimated Glomerular Filt Rate 57; Glucose 84 mg/dL (65-110); Lipase 48 U/L (23-300); Magnesium 1.7 mg/dL (1.6-2.3); Potassium 3.8 mmol/L (3.4-5.0); Sodium 139 mmol/L (137-145)
[2024-10-21 21:31] VITALS: BP 124/54; O2SAT 100
[2024-10-21 21:32] VITALS: O2SAT 100
--- OUTSIDE RECORDS SUMMARY | 2024-10-21 21:33 | XMS_ITS | Clinical Summary ---
Author Organization [facility] Address [address] [facility] [address] [address] Phone Care Team Providers Care Clinical Nursing Instructor Name Role Phone Ashley Moraes MD Primary Care Provider Allergies No known active allergies Medications Tri-Sprintec, 28, 0.18/0.215/0.25 mg-35 mcg (28) tablet Take 1 Tablet by mouth daily. 3 Active fluticasone propionate (FLONASE) 50 mcg/spray [place], Suspension nasal inhalerIndicati ons:Viral URI Administer 2 [...] STL ABSTRACTION Provider, Abstract 08/11/2024 Results Follow-Up [facility] [place] [address] [place] [address] Celeste Eugene, NURIS HEMOGLOBIN A1C, MONONUCLEOSIS SCREEN, TSH, Additional followed-up results: 4 08/09/2024 10:00 AM MANAGER MULTIMEDIA Office Visit [facility] [place] [address] [place] [address] Celeste Eugene, NURIS Chronic hypertrophy of tonsils [...] Sex Assigned at Female 05/19/2023 4:22 PM MANAGER MULTIMEDIA Legal Sex Female 11:06 PM MANAGER MULTIMEDIA Gender Identity Other 05/19/2023 4:22 PM MANAGER MULTIMEDIA Sexual Orientation unknown 05/19/2023 4: 22 PM MANAGER MULTIMEDIA Last Filed Vital Signs Vital Sign Reading Time Taken Comments Blood Pressure 118/68 08/09/2024 10:00 AM MANAGER MULTIMEDIA Pulse 90 08/09/2024 10:00 AM MANAGER MULTIMEDIA Temperature 36.6 C (97.8 F) 08/09/2024 10:00 AM MANAGER MULTIMEDIA Respiratory Rate 18 08/09/2024 10:00 AM MANAGER MULTIMEDIA Oxygen Saturation 99% 08/09/2024 10:00 AM MANAGER MULTIMEDIA Inhaled Oxygen Concentration - - Weight 120.2 kg (265 lb) 08/09/2024 10:00 AM MANAGER MULTIMEDIA Height 160 cm (5' 3 ) 08/09/2024 10:00 AM MANAGER MULTIMEDIA Body Mass Index 46.94 08/09/2024 10:00 AM MANAGER MULTIMEDIA Plan of Treatment Upcoming Encounters Date Type Department Care Team (Late st Contact Info) Description 02/06/2025 10:30 AM CDT Office Visit [facility] [place] [address] [place] [address] Celeste Eugene, ANP [address] [place] [address] Health Maintenance Due Date Last [...] COMPREHENSIVE METABOLIC PANEL Routine 08/09/2024 10:31 AM MANAGER MULTIMEDIA Screening for condition CBC WITH DIFFERENTIAL Routine 08/09/2024 10:31 AM MANAGER MULTIMEDIA Screening for condition Chronic hypertrophy of tonsils and adenoids LIPID PANEL Routine 08/09/2024 10:31 AM MANAGER MULTIMEDIA Screening for condition TSH Routine 08/09/2024 10:31 AM MANAGER MULTIMEDIA Screening for condition MONONUCLEOSIS SCREEN Routine 08/09/2024 10:31 AM MANAGER MULTIMEDIA Chronic hypertrophy of tonsils and adenoids HEMOGLOBIN A1C Routine 08/09/2024 10:31 AM MANAGER MULTIMEDIA Screening for condition THROAT CULTURE Routine 08/09/2024 10:31 AM MANAGER MULTIMEDIA Chronic hypertrophy of tonsils and adenoids from Last 3 Months Results * (ABNORMAL) CBC WITH DIFFERENTIAL (08/09/2024 10:31 AM MANAGER MULTIMEDIA) WBC 5.1 3.8 - 10.8 Thousand/u L [...] [facility] Comment: Test Performed at: [facility] [address] [place] [address] Falguni Lopez MD Blood 08/09/2024 10:3 1 AM MANAGER MULTIMEDIA 08/10/2024 4:38 AM MANAGER MULTIMEDIA Celeste Eugene ANP HEMATOLOGY ORDERABLES Final Result [facility] [phone] [facility] [address] [place] [address] * MONONUCLEOSIS SCREEN (08/09/2024 10:31 AM MANAGER MULTIMEDIA) MONONUCLEOSIS SCREEN NEGATIVE NEGATIVE [facility] Comment: Test Performed at: [facility] [address] [place] [address] [place] [address] OndinaMiladis Lopez MD Blood 08/09/2024 10:3 1 AM MANAGER MULTIMEDIA 08/10/2024 4:38 AM MANAGER MULTIMEDIA Celeste Eugene ANP HEMATOLOGY ORDERABLES Final Result Performing Organization Address City/[facility]/ZIP Co de Phone Number [facility] [phone] [facility] [address] * THROAT CULTURE (08/09/2024 10:31 AM MANAGER MULTIMEDIA) THROAT CULTURE SEE NOTE [facility] Comment: CULTURE, THROAT Micro Number: [id number] Test Status: Final Specimen Source: Throat Specimen Quality: Adequate Result: No oropharyngeal pathogens recovered. Test Performed at: [facility] [address] [place] [address] Falguni Lopez Upper Respiratory SPECIMEN FROM THROAT / Unknown 08/09/2024 10:31 AM MANAGER MULTIMEDIA 08/10/2024 3:53 AM MANAGER MULTIMEDIA Celeste Eugene ANP MICROBIOLOGY - GENERAL ORDER YULI Final Result [facility] [phone] [facility] [address] [place] [address] * TSH (08/09/2024 10:31 AM MANAGER MULTIMEDIA) Pathologist [facility] TSH 1.53 mIU/L [facility] Comment: Reference Range > or = 20 Years 0.40-4.50 Ranges First trimester 0.26-2.66 Second trimester 0.55-2.73 Third trimester 0.43-2.91 Test Performed at: [facility] [address] [address] Falguni Lopez MD Blood 08/09/2024 10:3 1 AM MANAGER MULTIMEDIA 08/10/2024 4:38 AM MANAGER MULTIMEDIA us Celeste Eugene [facility] CHEMISTRY ORDERABLES Final R esult [facility] [phone] [facility] [address] [employer] [address] * HEMOGLOBIN A1C (08/09/2024 10:31 AM MANAGER MULTIMEDIA) Pathologist [facility] HEMOGLOBIN A1C 4.8 <5.7 % of total Hgb [facility] Comment: For the purpose of screening for the presence of diabetes: <5.7% Consistent with the absence of diabetes 5.7-6.4% Consistent with increased risk for diabetes (prediabetes) > or =6.5% Consistent with diabetes This assay result is consistent with a decreased risk of diabetes. Currently, no consensus exists regarding use of hemoglobin A1c for diagnosis of diabetes in children. According to [place] Diabetes Association (ADA) guidelines, hemoglobin A1c <7.0% represents optimal control in non- diabetic patients. Different metrics may apply to specific patient populations. Standards of Medical Care in Diabetes(ADA). ESTIMATED AVERAGE GLUCOSE (MG/DL) 91 mg/dL [facility] ESTIMATED AVERAGE GLUCOSE (MMOL/L) 5.0 mmol/L [facility] Comment: Test Performed at: [facility] [address] [address] Falguni Lopez MD Blood 08/09/2024 10:3 1 AM MANAGER MULTIMEDIA 08/10/2024 4:38 AM MANAGER MULTIMEDIA us Celeste Eugene ANP CHEMISTRY ORDERABLES Final R esult [facility] [phone] [facility] [place] [address] * (ABNORMAL) LIPID PANEL (08/09/2024 10:31 AM MANAGER MULTIMEDIA) CHOLESTEROL 198 <200 mg/dL [facility] [...] LDL-C. Elvin SS et al. SHERRY. 2013;310(19): 4473-2065 (http://education.SpikeSource/faq/PTK139) CHOL/HDL RATIO 3.1 <5.0 (calc) [facility] NON-HDL CHOLESTEROL 135(H) <130 mg/dL (calc) [facility] Comment: For patients with diabetes plus 1 major ASCVD risk factor, treating to a non-HDL-C goal of <100 mg/dL (LDL-C of <70 mg/dL) is considered a therapeutic option. Test Performed at: [facility] [place] [address] Falguni Lopez MD Blood 08/09/2024 10:3 1 AM MANAGER MULTIMEDIA 08/10/2024 4:38 AM MANAGER MULTIMEDIA us Celeste Eugene [facility] CHEMISTRY ORDERABLES Final R esult [facility] [phone] [facility] [address], [place] [address] * (ABNORMAL) COMPREHENSIVE METABOLIC PANEL (08/09/2024 10:31 AM MANAGER MULTIMEDIA) GLUCOSE 97 65 - 99 mg/dL [facility] [...] [facility] Comment: Test Performed at: [facility] [address] [place] [address] Falguni Lopez MD Blood 08/09/2024 10:3 1 AM MANAGER MULTIMEDIA 08/10/2024 4:38 AM MANAGER MULTIMEDIA us Celeste Eugene ANP CHEMISTRY ORDERABLES Final R esult [facility] [phone] [facility] [address] [place] [address] from Last 3 Months Insurance ALLEGIANCE OPEN ACCESS ALLEGIANCE OPEN ACCESS Care Teams Clinical Nursing Instructor Relationship Specialty Start Date End Date Ashley Moraes MD [address] [place] [address] [place] [address] PCP - General Internal Medicine 12/31/23
--- OUTSIDE RECORDS SUMMARY | 2024-10-21 21:33 | XMS_ITS | Clinical Summary ---
Author Organization [facility] Address [address] [place] [address] Care Team Providers Care Night Clerk Auditor Name Role Phone JabierCeleste Betina MARK Primary Care Provider [phone] Allergies No known active allergies Medications norgestimate-ethiny [...] Department Care Team Description 08/15/2024 9:45 AM WINDOW SHADE CUTTER Office Visit [facility] Medical [facility] at [address] [address] Margret Baidr NP Adverse effect of drug, initial encounter (Primary Dx); Acute vomiting 08/12/2024 6:15 PM WINDOW SHADE CUTTER Office Visit [facility] at [address] [address] Julia Naidu NP Pain, dental (Primary Dx) from Last 3 Months Social History Tobacco Use Types Packs/Day Years Used Date Smoking Tobacco: Never Assessed Comments Unknown Sex and Gender Information Value Date Recorded Sex Assigned at Not on file Legal Sex Female 5:48 PM WINDOW SHADE CUTTER Gender Identity Not on file Sexual Orientation Not on file Obstetrics History Last Filed Vital Signs Vital Sign Reading Time Taken Comments Blood Pressure 128/78 08/15/2024 9:40 AM WINDOW SHADE CUTTER Pulse 125 08/15/2024 9:40 AM WINDOW SHADE CUTTER Temperature 37.3 C (99.2 F) 08/15/2024 9:40 AM WINDOW SHADE CUTTER Respiratory Rate 18 08/15/2024 9:40 AM WINDOW SHADE CUTTER Oxygen Saturation 99% 08/15/2024 9:40 AM WINDOW SHADE CUTTER Inhaled Oxygen Concentration - - Weight 120.2 kg (265 lb) 08/15/2024 9:40 AM WINDOW SHADE CUTTER Height - - Body Mass Index - [...] 05/09/2005 Meningococcal Vaccine Completed 04/23/2021, 015 [facility] Care Teams Night Clerk Auditor Relationship Specialty Start Date End Date Celeste Eugene NP PCP - General Lint Cleaner 08/15/24
--- OUTSIDE RECORDS SUMMARY | 2024-10-21 21:33 | XMS_ITS | Referral Summary ---
Author Organization [address] Address [address] [place] [address] Care Team Providers Care Home Health Nurse Licensed Practical Name Role Phone Celeste Eugene NP Primary Care Provider [phone] Encounters Date Type Department Care Team Description 08/15/2024 9:45 AM INSIDE SALES COORDINATOR Office Visit [facility] at [address] [address] Margret Baird NP Adverse effect of drug, initial encounter (Primary Dx); Acute vomiting 08/12/2024 6:15 PM INSIDE SALES COORDINATOR Office Visit [facility] at [address] [address] Julia Naidu NP Pain, dental [...] on file Legal Sex Female 5:48 PM INSIDE SALES COORDINATOR Gender Identity Not on file Sexual Orientation Not on file Last Filed Vital Signs Vital Sign Reading Time Taken Comments Blood Pressure 128/78 08/15/2024 9:40 AM INSIDE SALES COORDINATOR Pulse 125 08/15/2024 9:40 AM INSIDE SALES COORDINATOR Temperature 37.3 C (99.2 F) 08/15/2024 9:40 AM INSIDE SALES COORDINATOR Respiratory Rate 18 08/15/2024 9:40 AM INSIDE SALES COORDINATOR Oxygen Saturation 99% 08/15/2024 9:40 AM INSIDE SALES COORDINATOR Inhaled Oxygen Concentration - - Weight 120.2 kg (265 lb) 08/15/2024 9:40 AM INSIDE SALES COORDINATOR Height - - Body Mass Index - - Plan of Treatment Not on file Insurance JESSICA ALLEGIANCE Care Teams Home Health Nurse Licensed Practical Relationship Specialty Start Date End Date Celeste Eugene NP PCP - General Beaming Inspector 08/15/24
[2024-10-21] MEDS: SODIUM CHLORIDE 0.9% IV 1,000 ML 999 ML IV CONT (21:34)
[2024-10-21 21:37] LABS: SPREG INTERNAL CONTROL Positive; Serum Qual hCG Negative
--- NOTE | 2024-10-21 21:54 | ED_ITS ---
HPI - Abdominal Pain General Chief Complaint: Abdominal Pain Stated Complaint: suspected ovarian cyst rupture Time Seen by Provider: 10/21/24 21:22 History of Present Illness HPI narrative: Patient is a 19-year-old female who presents to the emergency department this evening complaining of left lower quadrant pain. Patient states that she does have a history of known ovarian cyst on the left side that bothers her from time to time. States that in the past she has had a cyst rupture spontaneously. Denies any chance of or history of ectopic pregnancies, admits to nausea but denies any vomiting episodes. Patient follows up with Dr. Elena as her OBGYN. States that at its worst the pain was a 7/10. Patient is currently resting comfortably does not appear to be in any distress. Related Data Home Medications ?Medication ?Instructions ?Recorded ?Confirmed ?Last Taken ?Type bupropion HCl 300 mg 24 hr tablet, mg PO 12/10/23 12/10/23 Unknown History extended release sertraline 150 mg capsule 150 mg PO DAILY 12/10/23 12/10/23 Unknown History Allergies Allergy/AdvReac Type Severity Reaction Status Date / Time No Known Allergies Allergy Verified 10/21/24 19:29 Review of Systems 2 Review of Systems: All systems are reviewed and are negative unless stated otherwise in the HPI. [facility] Past Medical History Medical History PTSD (post-traumatic stress disorder) History of ovarian cyst No active medical problems Surgical History Surgical History S/P removal of ovarian cyst (~04/15/21) right ovarian cyst Family History Family History Grandparent Diabetes mellitus Social History Social History Smoking status: Never smoker Alcohol intake: never Substance use: never Substance use type: does not use Lack of Transportation: No Current Housing: I Have Housing Concerned About Future Housing: No Difficulty Paying Gas/Electric Bills: No Difficulty Paying for Meds: No Currently Unemployed: No Education: High School Diploma/GED Difficulty w/ Childcare or Family Care: No Living arrangements: with family 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 HEENT: PERRL, no rhinorrhea, no post nasal drip, oropharynx clear. Neck: Trachea midline, no JVD, no lymphadenopathy. Cardiovascular: Regular rate and rhythm, no murmurs, rubs or gallops, no peripheral edema. Respiratory: Clear to auscultation bilaterally, no tachypnea, no wheezing, no rhonchi, no rubs, no respiratory distress. Abdomen: Soft, mild tenderness palpation over the left lower quadrant, nondistended, no rebound, no guarding, no peritoneal signs. Musculoskeletal: No joint swelling or deformity, normal muscle tone. Skin: No rashes or petechia, no signs of infection. Psychiatric: Alert and oriented, normal behavior and judgment for situation. Neurological: Alert and oriented to person, place, and time. Follows all commands. No focal deficits, speech is clear and fluent. Course Vital Signs Vital signs: Vital Signs Temperature 97.0 F L 10/21/24 19:26 Pulse Rate 119 H 10/21/24 19:26 Respiratory Rate 20 10/21/24 19:26 Blood Pressure 129/92 H 10/21/24 19:26 Pulse Oximetry 100 10/21/24 19:26 Oxygen Delivery Room Air 10/21/24 19:26 Temperature 97.0 F L 10/21/24 19:26 Pulse Rate 119 H 10/21/24 19:26 Respiratory Rate 20 10/21/24 19:26 Blood Pressure 124/54 L 10/21/24 21:31 Pulse Oximetry 100 10/21/24 21:32 Oxygen Delivery Room Air 10/21/24 19:26 MDM - Abdominal Pain MDM Narrative Medical decision making narrative: The patient was evaluated by myself in the emergency department. History is obtained from patient who is an independent historian and physical exam was performed. External medical records were reviewed at this time. IV was established and pertinent tests were ordered. Patient was administered 1 L IV fluid bolus with normal saline, 4 mg of IV Zofran for nausea and 2 mg IV morphine for pain. Laboratory results obtained revealing no acute process. Urinalysis unremarkable. test negative. Imaging studies obtained included pelvic ultrasound with transvaginal which was independently interpreted by me revealing: Cystic septated and hypervascular lesion in the left ovary with free fluid in the pelvis. Differential include hemorrhagic cyst versus ectopic . Clinical correlation advised. Torsion ovary is less likely but cannot be excluded. Otherwise, normal pelvic ultrasound. Differential diagnosis considerations include ovarian torsion, ectopic , ovarian cyst. Comorbidities impacting this visit include history of ovarian cyst on the left side. I have evaluated and discussed social determinants of health with the patient that could potentially impact subsequent diagnosis and treatment plans. On repeat assessment of the patient, reevaluation revealed that the patient is doing well and is in no acute distress. Patient symptoms have improved since she arrived to our emergency department. Repeat vital signs were all reviewed and noted to be stable. Differential diagnosis and treatment plan were discussed with the patient at bedside. Patient agrees with discussion and after shared medical decision making agrees with discharge. All questions were answered to the patient's satisfaction. Patient will follow up with her OB in 3-5 days. Patient was provided with strict return precautions and instructed to return to the emergency department if any new or worsening symptoms develop. The patient was discharged in stable condition. Lab Data 10/21/24 21:04 10/21/24 21:04 Labs: Lab Results 10/21/24 Range/Units 21:04 WBC 5.9 (4.5-10.0) K/mm3 RBC 4.02 L (4.2-5.4) M/mm3 Hgb 10.9 L (12.0-15.0) g/dL Hct 35.1 L (37.0-47.0) % MCV 87.3 (80-100) fl MCH 27.1 (26-34) pg MCHC 31.1 L (32-36) g/dl RDW 13.0 (11.5-14.5) % Plt Count 362 (150-375) k/mm3 MPV 9.5 (7.4-10.4) fl Immature Gran % (Auto) 0.2 (0-0.5) % Neut % (Auto) 47.4 (45.5-73.1) % Lymph % (Auto) 42.7 (18.3-44.2) % Tripp % (Auto) 7.0 (2.6-8.5) % Eos % (Auto) 2.4 (0-4.4) % Baso % (Auto) 0.3 (0.2-1.2) % Lymph # (Auto) 2.50 (0.9-3.2) K/mm3 Tripp # (Auto) 0.4 (0.1-0.6) K/mm3 Eos # (Auto) 0.1 (0-0.3) K/mm3 Baso # (Auto) 0.0 (0.0-0.1) K/mm3 Abs Immat Gran (auto) 0.01 (0.00-0.031) K/mm3 Absolute Neuts (auto) 2.8 (1.3-6.7) K/mm3 Absolute Nucleated RBC 0.000 (0.0-0.012) K/mm3 Nucleated RBC % 0.0 (0.0-0.2) % Sodium 139 (137-145) mmol/L Potassium 3.8 (3.4-5.0) mmol/L Chloride 108 H (98-107) mmol/L Carbon Dioxide 19 L (22-30) mmol/L Anion Gap 12 (4-12) mmol/L BUN 13 (7-17) mg/dL Creatinine 1.20 H (0.7-1.0) mg/dL Estim Creat Clear Calc 83 ml/min Estimated GFR 57 L (59 - ) Glucose 84 (65-110) mg/dL Calcium 9.0 (8.4-10.2) mg/dL Magnesium 1.7 (1.6-2.3) mg/dL Total Bilirubin 0.3 (0.2-1.3) mg/dL AST 31 (14-36) U/L ALT 43 H (6-35) U/L Alkaline Phosphatase 103 (38-126) U/L Total Protein 9.0 H (6.3-8.2) g/dL Albumin 4.5 (3.5-5.1) g/dL Lipase 48 (23-300) U/L Serum HCG, Qual Negative Urine Color Yellow (Yellow) Urine Appearance Cloudy H (Clear) Urine pH 6.0 (5.0-9.0) Ur Specific Ulysses 1.018 (1.001-1.035) Urine Protein Negative (Negative) mg/dL Urine Glucose (UA) Negative (Negative) mg/dL Urine Ketones Negative (Negative) mg/dL Ur Blood (Man) Negative (Negative) Urine Nitrate Negative (Negative) Urine Bilirubin Negative (Negative) Urine Urobilinogen 0.2 (<2.0) mg/dL Leukocyte Esterase Rfl 1+ H (Negative) LINDA/UL Urine RBC 0-2 (0-2) /hpf Urine WBC 6-10 H (0-3) /hpf Ur Squamous Epith Cells Moderate (Few) /hpf Urine Bacteria 1+ H /hpf Urine Casts 0-2 Imaging Data Radiologist's impression: ITS Impressions Pelvic/Transvag US 10/21/24 21:12 IMPRESSION: Cystic septated and hypervascular lesion in the left ovary with free fluid in the pelvis. Differential include hemorrhagic cyst versus ectopic . Clinical correlation advised. Torsion ovary is less likely but cannot be excluded. Otherwise, normal pelvic ultrasound. Discharge Plan Discharge Clinical Impression: Cyst of left ovary Patient Disposition: Home Condition: Improved Instructions: Antibiotic Form, Ovarian Cyst (ED) Additional Instructions: Please follow-up with your OBGYN within the next 3-5 days. Return to the ED if any new or worsening symptoms develop. Patient Language: Trinidadian Prescriptions: No Action sertraline 150 mg capsule 150 mg PO DAILY bupropion HCl 300 mg tablet extended release 24 hr PO norgestimate-ethinyl estradiol [Tri-Sprintec (28)] 0.18/0.215/0.25 mg-35 mcg (28) tablet 1 tablet PO DAILY Qty: 84 4RF Follow-up/Referrals: Brittni Elena MD [Physician] - 3 Days UNKNOWN,DOCTOR [Primary Care Provider] - Time of Disposition: 22:01
[2024-10-21] MEDS: ONDANSETRON INJ 4 MG/2 ML VIAL IV PUSH (22:01)
[2024-10-21] MEDS: MORPHINE SULFATE (*CRX) 2 MG/ML INJ IV PUSH (22:01)
--- NOTE | 2024-10-21 22:36 | PC.NURSE ---
Checked on fluids. Pt arm was bent therefore fluids were not flowing. There is about 200 mL left. Educated on arm position and will check back shortly.
[2024-10-21 23:27] VITALS: BP 127/95; PULSE 94; RESP 16; O2SAT 100
[2024-10-21 23:28] VITALS: BP 127/95; PULSE 94; RESP 16; O2SAT 100
== END 2024-10-21 23:26 | disposition home or self-care (01) ==
PROVIDERS: Emergency Provider Emergency Medicine
DX: N83.202 Unspecified ovarian cyst, left side (principal); F43.10 Post-traumatic stress disorder, unspecified; Z79.899 Other long term (current) drug therapy; Z79.3 Long term (current) use of hormonal contraceptives
CPT/HCPCS: 36415; 76830; 76856; 80053; 81001; 83690; 83735; 84703; 85025; 96361; 96374; 96375; 99284; J2270; J2405; J7030